=== PATIENT | female | born 1970 | race Caucasian/White ===

== ENCOUNTER 2016-08-28 12:02 | Emergency (ER) | payer BC ==
[~2016-08-28] VITALS: Ht 170.2 cm; Wt 97.0 kg
[~2016-08-28 12:02] MED LIST: HYDROCHLOROTH12.5 M1 PO
[2016-08-28 13:32] LABS: HEMATOCRIT 40.9 % (36.0-46.0); MCH 29.3 PG (29.0-34.0); MCV 88.7 FL (83-99); MEAN PLAT.VOLUME 11.3 uM^3 (9.5-12.4); PLATELET COUNT 243 K/uL (156-360); RBC DIS.WIDTH-CV 12.8 % (11.8-14.6); RBC DIS.WIDTH-SD 41.1 % (39-53); RED BLOOD COUNT 4.61 M/uL (3.80-5.20); WHITE BLOOD COUNT 8.4 K/uL (4.1-10.2)
[2016-08-28 13:44] LABS: CHLORIDE 107 mEq/L (99-109); SODIUM 138 mEq/L (136-147)
[2016-08-28 13:46] LABS: GLUCOSE 87 mg/dL (70-99)
[2016-08-28 13:47] LABS: ANION GAP 9 MEQ/L (2-14)
[2016-08-28 13:50] LABS: GFR ESTIMATE (CALCULATED) > 59 mL/min/; UREA NITROGEN (BUN) 12 mg/dL (9-23)
[2016-08-28 13:53] LABS: TROP-I INTERPRETATION NEGATIVE; TROPONIN-I < 0.01 ng/mL (0.0-0.30)
[2016-08-28 18:40] LABS: TROP-I INTERPRETATION NEGATIVE; TROPONIN-I < 0.01 ng/mL (0.0-0.30)
[2016-08-28 19:30] VITALS: BP 123/72
== END 2016-08-28 19:32 | disposition home or self-care (01) ==
LOC: EME 12:02
PROVIDERS: Emergency Medicine
DX: R07.9 Chest pain, unspecified (principal); I10 Essential (primary) hypertension; Z86.73 Personal history of transient ischemic attack (TIA), and cerebral infarction without residual deficits
CPT/HCPCS: 71020; 71275; 80048; 84484; 85027; 93005; 99281; 99285; J3010; J7030